=== PATIENT | male | born 1985 | race African-American/Black ===

== ENCOUNTER 2018-04-23 12:53 | Inpatient (IN) | payer MEDICAID ==
[~2018-04-23] VITALS: Ht 175.3 cm; Wt 96.7 kg
[~2018-04-23 12:53] MED LIST: BENZ1TAB10 PO; DIVA-78 PO; QUET300T2 PO; RISPC25 IM
[2018-04-23 15:54] LABS: AMPHET/METH SCREEN,URINE POSITIVE (NEGATIVE); BARBITURATE SCREEN, URINE NEGATIVE (NEGATIVE); BENZODIAZEPINES SCREEN,URINE NEGATIVE (NEGATIVE); CANNABINOID SCREEN,URINE NEGATIVE (NEGATIVE); COCAINE SCREEN,URINE NEGATIVE (NEGATIVE); METHADONE SCREEN, URINE NEGATIVE (NEGATIVE); OPIATE SCREEN,URINE NEGATIVE (NEGATIVE)
[2018-04-23 16:00] LABS: PHENCYCLIDINE SCREEN,URINE NEGATIVE (NEGATIVE)
[2018-04-23 16:03] LABS: HEMATOCRIT 36.3 % (41-53); HEMOGLOBIN 13.2 g/dL (13.5-17.5); MEAN CORPUSCULAR HEMOGLOBIN 36.9 pg (26.0-34.0); MEAN CORPUSCULAR HGB CONC 36.3 G/dL (31.0-37.0); MEAN CORPUSCULAR VOLUME 102 fL (80-100); PLATELET COUNT (AUTO) 257 K/uL (150-450); RED BLOOD CELL COUNT(AUTO) 3.58 MIL/uL (4.50-5.90); RED CELL DISTRIBUTION WIDTH 14.8 % (11.5-14.5)
[2018-04-23 16:18] LABS: ANION GAP 6 mmol/L (8-16); CALCIUM, TOTAL 9.3 mg/dL (8.8-10.5); CARBON DIOXIDE 28 mmol/L (22-29); CHLORIDE 103 mmol/L (98-107); CREATININE 1.21 mg/dL (0.60-1.30); GLOMERULAR FILTR. RATE CALC > 60 mL/min (>60); GLUCOSE,RANDOM 99 mg/dL (70-110); POTASSIUM 4.6 mmol/L (3.5-5.1); SODIUM SERUM 137 mmol/L (136-145); UREA NITROGEN, BLOOD 24 mg/dL (7-18)
[2018-04-23 16:24] LABS: ALANINE AMINOTRANSFERASE 36 U/L (12-78); ALBUMIN 3.8 g/dL (3.4-5.0); ALKALINE PHOSPHATASE 53 U/L (46-116); ASPARTATE AMINOTRANSFERASE 31 U/L (15-37); BILIRUBIN,TOTAL 0.9 mg/dL (0.1-1.0); TOTAL PROTEIN, SERUM 7.5 g/dL (6.4-8.2); VALPROIC ACID 45 mcg/mL (50-100)
[2018-04-23 17:52] LABS: BAND NEUTROPHILS % (MANUAL) 1 % (0-5); EOSINOPHILS % (MANUAL) 2 % (1-6); LYMPHOCYTES % (MANUAL) 21 % (22-44); MONOCYTES % (MANUAL) 5 % (2-9); SEGMENTED NEUTROPHILS % 71 % (40-70)
[2018-04-23] MEDS ORDERED: HALOPERIDOL 5 MG TABLET PO PRN (20:30)
[2018-04-23 21:02] LABS: APPEARANCE,URINE CLEAR (CLEAR); GLUCOSE, URINE (UA) NEGATIVE (NEGATIVE); KETONES,URINE NEGATIVE (NEGATIVE); LEUKOCYTE ESTERASE ,URINE NEGATIVE (NEGATIVE); NITRATE,URINE NEGATIVE (NEGATIVE); OCCULT BLOOD,URINE NEGATIVE (NEGATIVE); PROTEIN,URINE NEGATIVE (NEGATIVE)
[2018-04-23 21:06] LABS: BILIRUBIN,URINE PRELIM. POSITIVE (NEGATIVE)
[2018-04-23 21:18] LABS: BACTERIA,URINE None Seen /HPF (None Seen); RBC,URINE 0-2 /HPF (0-2); SQUAMOUS EPITHELIAL CELL,UR Rare /LPF (None Seen)
[2018-04-24 01:10] VITALS: BP 106/72
[2018-04-24 03:40] LABS: CHOL/HDL RATIO 2.8 (4.2-7.3); CHOLESTEROL 137 mg/dL (131-200); HDL CHOLESTEROL 49 mg/dL (40-60); LDL CHOL (CALC.) 71 mg/dL (0-130); TRIGLYCERIDES 84 mg/dL (15-150)
[2018-04-24 08:24] VITALS: BP 108/75
[2018-04-24] MEDS ORDERED: MAGNESIUM HYDROXIDE SUSPENSION 30 ML UDCUP PO PRN (09:30)
[2018-04-24] MEDS ORDERED: ONDANSETRON HCL 4 MG TABLET PO PRN (09:30)
[2018-04-24] MEDS ORDERED: IBUPROFEN 600 MG TABLET PO PRN (09:30)
[2018-04-24] MEDS ORDERED: OMEPRAZOLE 20 MG CAPSULE PO PRN (09:30)
[2018-04-24] MEDS ORDERED: ACETAMINOPHEN 325 MG TABLET PO PRN (09:30)
[2018-04-24] MEDS ORDERED: PETROLATUM,WHITE 71 GM JELLY TP PRN (09:30)
[2018-04-24] MEDS ORDERED: DOCUSATE SODIUM 100 MG CAPSULE PO PRN (09:30)
[2018-04-24] MEDS ORDERED: BACITRACIN 28.4 GM OINTMENT TP PRN (09:30)
[2018-04-24] MEDS ORDERED: LOPERAMIDE HCL 2 MG CAPSULE PO PRN (09:30)
[2018-04-24] MEDS ORDERED: CloNIDine HCL 0.1 MG TABLET PO PRN (09:30)
[2018-04-24] MEDS ORDERED: ALBUTEROL SULFATE HFA 90 MCG/PUFF 8 GM INHALER IH PRN (09:30)
[2018-04-24] MEDS ORDERED: BENZOCAINE/MENTHOL LOZENGE MM PRN (09:30)
[2018-04-24] MEDS ORDERED: MAG HYDROX/AL HYDROX/SIMETH ES 30 ML SUSPENSION UDCUP PO PRN (09:30)
[2018-04-24 10:35] VITALS: BP 120/59
[2018-04-24] MEDS: PARoxetine HCL 20 MG TABLET PO SCH (13:15)
[2018-04-24 16:00] VITALS: BP 116/64
[2018-04-24] MEDS: BENZTROPINE MESYLATE 1 MG TABLET PO SCH (17:06)
[2018-04-24] MEDS: LORazepam 2 MG TABLET PO PRN (17:06)
[2018-04-24] MEDS: DIVALPROEX SODIUM 500 MG ER TABLET PO SCH (17:07)
[2018-04-24] MEDS: ZOLPIDEM TARTRATE 10 MG TABLET PO PRN (21:01)
[2018-04-24] MEDS: QUEtiapine FUMARATE 300 MG TABLET PO SCH (21:01)
[2018-04-25 03:02] VITALS: BP 122/88
[2018-04-25 08:02] VITALS: BP 100/65
[2018-04-25] MEDS: BENZTROPINE MESYLATE 1 MG TABLET PO SCH ×2 (08:09→16:25)
[2018-04-25] MEDS: DIVALPROEX SODIUM 500 MG ER TABLET PO SCH ×2 (08:09→16:25)
[2018-04-25] MEDS: PARoxetine HCL 20 MG TABLET PO SCH (08:09)
[2018-04-25 08:32] LABS: % IRON SATURATION 47.5 % (30-44)
[2018-04-25 16:07] VITALS: BP 114/68
[2018-04-25] MEDS: LORazepam 2 MG TABLET PO PRN (16:25)
[2018-04-25] MEDS: QUEtiapine FUMARATE 300 MG TABLET PO SCH (20:13)
[2018-04-25] MEDS: ZOLPIDEM TARTRATE 10 MG TABLET PO PRN (20:13)
[2018-04-26 06:25] VITALS: BP 126/72
[2018-04-26] MEDS: DIVALPROEX SODIUM 500 MG ER TABLET PO SCH ×2 (08:01→16:46)
[2018-04-26] MEDS: PARoxetine HCL 20 MG TABLET PO SCH (08:01)
[2018-04-26] MEDS: BENZTROPINE MESYLATE 1 MG TABLET PO SCH ×2 (08:01→16:46)
[2018-04-26 08:02] VITALS: BP 113/85
[2018-04-26] MEDS ORDERED: PALIPERIDONE PALMITATE 234 MG/1.5 ML SYRINGE IM ONE (09:00)
[2018-04-26 16:01] VITALS: BP 112/65
[2018-04-26] MEDS: LORazepam 2 MG TABLET PO PRN (16:46)
[2018-04-26] MEDS: QUEtiapine FUMARATE 300 MG TABLET PO SCH (20:14)
[2018-04-26] MEDS: ZOLPIDEM TARTRATE 10 MG TABLET PO PRN (20:15)
[2018-04-27 00:16] VITALS: BP 131/77
[2018-04-27] MEDS: DIVALPROEX SODIUM 500 MG ER TABLET PO SCH (08:02)
[2018-04-27] MEDS: BENZTROPINE MESYLATE 1 MG TABLET PO SCH (08:02)
[2018-04-27] MEDS: PARoxetine HCL 20 MG TABLET PO SCH (08:02)
[2018-04-27 08:08] VITALS: BP 113/66
[2018-04-27] MEDS ORDERED: PARO20TA24 PO (11:56)
[2018-04-27] MEDS ORDERED: DIVA500T52 PO (11:56)
[2018-04-27] MEDS ORDERED: DIVA-78 PO (12:14)
== END 2018-04-27 13:05 | disposition home or self-care (01) | DRG 750 ==
LOC: EMS 12:54 → UNDOADMIN 04-24 00:08 → B3A 04-24 00:08 → AHU 04-24 00:08 → B3A 04-24 01:00 → AHU 04-24 10:06 → B3A 04-24 10:06
PROVIDERS: ADMIT Psychiatry & Neurology Psychiatry; ATTEND Psychiatry & Neurology Psychiatry
DX: F20.0 Paranoid schizophrenia (principal); Z91.14 Patient's other noncompliance with medication regimen; R45.851 Suicidal ideations; D64.9 Anemia, unspecified; F15.90 Other stimulant use, unspecified, uncomplicated; F17.200 Nicotine dependence, unspecified, uncomplicated; K59.00 Constipation, unspecified; Z71.6 Tobacco abuse counseling
CPT/HCPCS: 83540; 83550; G0480

== ENCOUNTER 2018-05-01 02:34 | Inpatient (IN) | payer MEDICAID ==
[~2018-05-01] VITALS: Ht 180.3 cm; Wt 95.7 kg
[~2018-05-01 02:34] MED LIST changes: +PARO20TA24 PO; -RISPC25 IM
[2018-05-01 03:09] LABS: BASOPHILS % (AUTO) 0.7 % (0.0-2.0); EOSINOPHILS % (AUTO) 1.9 % (1.0-6.0); HEMATOCRIT 37.5 % (41-53); HEMOGLOBIN 13.5 g/dL (13.5-17.5); LYMPHOCYTES # (AUTO) 2.8 K/uL (1.0-4.8); LYMPHOCYTES % (AUTO) 29.7 % (22.0-44.0); MEAN CORPUSCULAR HEMOGLOBIN 36.7 pg (26.0-34.0); MEAN CORPUSCULAR VOLUME 102 fL (80-100); MONOCYTES # (AUTO) 1.1 K/uL (0.1-1.0); MONOCYTES % (AUTO) 11.5 % (2.0-9.0); NEUTROPHILS # (AUTO) 5.3 K/uL (1.8-7.7); NEUTROPHILS % (AUTO) 56.2 % (40.0-70.0); PLATELET COUNT (AUTO) 268 K/uL (150-450); RED BLOOD CELL COUNT(AUTO) 3.69 MIL/uL (4.50-5.90); RED CELL DISTRIBUTION WIDTH 14.7 % (11.5-14.5)
[2018-05-01 03:20] LABS: ANION GAP 10 mmol/L (8-16); CALCIUM, TOTAL 9.1 mg/dL (8.8-10.5); CARBON DIOXIDE 29 mmol/L (22-29); CHLORIDE 103 mmol/L (98-107); GLOMERULAR FILTR. RATE CALC > 60 mL/min (>60); GLUCOSE,RANDOM 76 mg/dL (70-110); POTASSIUM 4.1 mmol/L (3.5-5.1); SODIUM SERUM 142 mmol/L (136-145); UREA NITROGEN, BLOOD 12 mg/dL (7-18)
[2018-05-01 03:26] LABS: ALANINE AMINOTRANSFERASE 35 U/L (12-78); ALBUMIN 3.7 g/dL (3.4-5.0); ALKALINE PHOSPHATASE 58 U/L (46-116); ASPARTATE AMINOTRANSFERASE 26 U/L (15-37); TOTAL PROTEIN, SERUM 7.3 g/dL (6.4-8.2)
[2018-05-01 03:35] LABS: AMPHET/METH SCREEN,URINE POSITIVE (NEGATIVE); BARBITURATE SCREEN, URINE NEGATIVE (NEGATIVE); BENZODIAZEPINES SCREEN,URINE NEGATIVE (NEGATIVE); CANNABINOID SCREEN,URINE NEGATIVE (NEGATIVE); COCAINE SCREEN,URINE NEGATIVE (NEGATIVE); METHADONE SCREEN, URINE NEGATIVE (NEGATIVE); OPIATE SCREEN,URINE NEGATIVE (NEGATIVE)
[2018-05-01 03:37] LABS: PHENCYCLIDINE SCREEN,URINE NEGATIVE (NEGATIVE)
[2018-05-01] MEDS ORDERED: ZOLPIDEM TARTRATE 10 MG TABLET PO PRN (06:30)
[2018-05-01 10:00] VITALS: BP 99/72
[2018-05-01 10:20] LABS: BILIRUBIN,URINE NEGATIVE (NEGATIVE); GLUCOSE, URINE (UA) NEGATIVE (NEGATIVE); KETONES,URINE NEGATIVE (NEGATIVE); LEUKOCYTE ESTERASE ,URINE NEGATIVE (NEGATIVE); NITRATE,URINE NEGATIVE (NEGATIVE); OCCULT BLOOD,URINE NEGATIVE (NEGATIVE); PROTEIN,URINE NEGATIVE (NEGATIVE)
[2018-05-01 10:32] LABS: APPEARANCE,URINE HAZY (CLEAR)
[2018-05-01 16:05] VITALS: BP 123/71
[2018-05-01] MEDS: LORazepam 2 MG TABLET PO PRN (16:30)
[2018-05-01] MEDS: HALOPERIDOL 5 MG TABLET PO PRN (16:30)
[2018-05-01] MEDS: QUEtiapine FUMARATE 300 MG TABLET PO SCH (22:36)
[2018-05-02 06:00] VITALS: BP 108/72
[2018-05-02] MEDS: DIVALPROEX SODIUM 500 MG DR TABLET PO SCH ×2 (08:23→16:21)
[2018-05-02] MEDS: BENZTROPINE MESYLATE 1 MG TABLET PO SCH ×2 (08:23→16:21)
[2018-05-02] MEDS: LORazepam 2 MG TABLET PO PRN (08:23)
[2018-05-02 08:32] VITALS: BP 106/63
[2018-05-02 16:00] VITALS: BP 109/72
[2018-05-02] MEDS: QUEtiapine FUMARATE 300 MG TABLET PO SCH (20:18)
[2018-05-03 06:09] VITALS: BP 114/74
[2018-05-03 08:16] VITALS: BP 102/61
[2018-05-03] MEDS: BENZTROPINE MESYLATE 1 MG TABLET PO SCH ×2 (09:44→16:29)
[2018-05-03] MEDS: DIVALPROEX SODIUM 500 MG DR TABLET PO SCH ×2 (09:45→16:29)
[2018-05-03 16:08] VITALS: BP 104/73
[2018-05-03] MEDS: QUEtiapine FUMARATE 300 MG TABLET PO SCH (20:01)
[2018-05-04 05:28] VITALS: BP 108/68
[2018-05-04 08:24] VITALS: BP 108/76
[2018-05-04] MEDS: BENZTROPINE MESYLATE 1 MG TABLET PO SCH ×2 (08:35→17:06)
[2018-05-04] MEDS: DIVALPROEX SODIUM 500 MG DR TABLET PO SCH ×2 (08:35→17:06)
[2018-05-04 16:00] VITALS: BP 110/70
[2018-05-04] MEDS: QUEtiapine FUMARATE 300 MG TABLET PO SCH (20:39)
[2018-05-05 05:58] VITALS: BP 112/72
[2018-05-05] MEDS: DIVALPROEX SODIUM 500 MG DR TABLET PO SCH ×2 (08:03→16:24)
[2018-05-05] MEDS: BENZTROPINE MESYLATE 1 MG TABLET PO SCH ×2 (08:03→16:24)
[2018-05-05 08:27] VITALS: BP 106/75
[2018-05-05 16:01] VITALS: BP 106/67
[2018-05-05] MEDS: QUEtiapine FUMARATE 300 MG TABLET PO SCH (20:20)
[2018-05-05] MEDS ORDERED: LOPERAMIDE HCL 2 MG CAPSULE PO PRN (20:45)
[2018-05-05] MEDS ORDERED: ONDANSETRON HCL 4 MG TABLET PO PRN (20:45)
[2018-05-05] MEDS ORDERED: BACITRACIN 28.4 GM OINTMENT TP PRN (20:45)
[2018-05-05] MEDS ORDERED: MAGNESIUM HYDROXIDE SUSPENSION 30 ML UDCUP PO PRN (20:45)
[2018-05-05] MEDS ORDERED: ACETAMINOPHEN 325 MG TABLET PO PRN (20:45)
[2018-05-05] MEDS ORDERED: ALBUTEROL SULFATE HFA 90 MCG/PUFF 8 GM INHALER IH PRN (20:45)
[2018-05-05] MEDS ORDERED: BENZOCAINE/MENTHOL LOZENGE MM PRN (20:45)
[2018-05-05] MEDS ORDERED: CloNIDine HCL 0.1 MG TABLET PO PRN (20:45)
[2018-05-05] MEDS ORDERED: MAG HYDROX/AL HYDROX/SIMETH ES 30 ML SUSPENSION UDCUP PO PRN (20:45)
[2018-05-05] MEDS ORDERED: IBUPROFEN 600 MG TABLET PO PRN (20:45)
[2018-05-05] MEDS ORDERED: PETROLATUM,WHITE 71 GM JELLY TP PRN (20:45)
[2018-05-06 02:14] VITALS: BP 109/62
[2018-05-06] MEDS: DOCUSATE SODIUM 100 MG CAPSULE PO SCH (08:01)
[2018-05-06] MEDS: OMEPRAZOLE 20 MG CAPSULE PO SCH (08:01)
[2018-05-06] MEDS: DIVALPROEX SODIUM 500 MG DR TABLET PO SCH ×2 (08:01→17:03)
[2018-05-06] MEDS: BENZTROPINE MESYLATE 1 MG TABLET PO SCH ×2 (08:01→17:03)
[2018-05-06 08:29] VITALS: BP 100/67
[2018-05-06 16:00] VITALS: BP 108/65
[2018-05-06] MEDS: QUEtiapine FUMARATE 300 MG TABLET PO SCH (21:07)
[2018-05-07 06:16] VITALS: BP 109/71
[2018-05-07 08:02] VITALS: BP 102/60
[2018-05-07] MEDS: DIVALPROEX SODIUM 500 MG DR TABLET PO SCH ×2 (08:07→16:53)
[2018-05-07] MEDS: BENZTROPINE MESYLATE 1 MG TABLET PO SCH ×2 (08:07→16:53)
[2018-05-07] MEDS: DOCUSATE SODIUM 100 MG CAPSULE PO SCH (08:08)
[2018-05-07] MEDS: OMEPRAZOLE 20 MG CAPSULE PO SCH (08:13)
[2018-05-07 16:06] VITALS: BP 107/82
[2018-05-07] MEDS: HALOPERIDOL 5 MG TABLET PO PRN (19:16)
[2018-05-07] MEDS: LORazepam 2 MG TABLET PO PRN (19:16)
[2018-05-07] MEDS: QUEtiapine FUMARATE 300 MG TABLET PO SCH (20:30)
[2018-05-08 00:39] VITALS: BP 112/76
[2018-05-08] MEDS: BENZTROPINE MESYLATE 1 MG TABLET PO SCH ×2 (08:01→16:17)
[2018-05-08] MEDS: DOCUSATE SODIUM 100 MG CAPSULE PO SCH (08:01)
[2018-05-08] MEDS: DIVALPROEX SODIUM 500 MG DR TABLET PO SCH ×2 (08:01→16:16)
[2018-05-08] MEDS: OMEPRAZOLE 20 MG CAPSULE PO SCH (08:01)
[2018-05-08] MEDS: LORazepam 2 MG TABLET PO PRN ×2 (08:02→12:52)
[2018-05-08 08:33] VITALS: BP 106/64
[2018-05-08 17:39] VITALS: BP 120/81
[2018-05-08] MEDS: QUEtiapine FUMARATE 300 MG TABLET PO SCH (20:51)
[2018-05-09 00:13] VITALS: BP 114/74
[2018-05-09] MEDS ORDERED: MULTIVITAMINS WITH IRON TABLET PO SCH (07:30)
[2018-05-09] MEDS: BENZTROPINE MESYLATE 1 MG TABLET PO SCH (08:09)
[2018-05-09] MEDS: DIVALPROEX SODIUM 500 MG DR TABLET PO SCH (08:09)
[2018-05-09] MEDS: DOCUSATE SODIUM 100 MG CAPSULE PO SCH (08:09)
[2018-05-09] MEDS: OMEPRAZOLE 20 MG CAPSULE PO SCH (08:09)
[2018-05-09 08:42] VITALS: BP 135/81
== END 2018-05-09 13:15 | disposition home or self-care (01) | DRG 750 ==
LOC: EMS 02:34 → B3A 08:03
PROVIDERS: ADMIT Psychiatry & Neurology Psychiatry; ATTEND Psychiatry & Neurology Psychiatry
DX: F20.0 Paranoid schizophrenia (principal); D64.9 Anemia, unspecified; F15.90 Other stimulant use, unspecified, uncomplicated; F17.200 Nicotine dependence, unspecified, uncomplicated; K59.00 Constipation, unspecified; Z71.6 Tobacco abuse counseling
CPT/HCPCS: 87081; 90686; G0480

== ENCOUNTER 2018-09-21 18:22 | Inpatient (IN) | payer MEDICAID ==
[~2018-09-21] VITALS: Ht 180.3 cm; Wt 95.7 kg
[~2018-09-21 18:22] MED LIST changes: -PARO20TA24 PO
[2018-09-21 21:26] LABS: BASOPHILS % (AUTO) 0.6 % (0.0-2.0); EOSINOPHILS % (AUTO) 2.4 % (1.0-6.0); HEMATOCRIT 34.4 % (41-53); HEMOGLOBIN 11.9 g/dL (13.5-17.5); LYMPHOCYTES # (AUTO) 2.2 K/uL (1.0-4.8); LYMPHOCYTES % (AUTO) 20.2 % (22.0-44.0); MEAN CORPUSCULAR HEMOGLOBIN 38.2 pg (26.0-34.0); MEAN CORPUSCULAR HGB CONC 34.5 G/dL (31.0-37.0); MEAN CORPUSCULAR VOLUME 111 fL (80-100); MONOCYTES # (AUTO) 1.2 K/uL (0.1-1.0); MONOCYTES % (AUTO) 11.1 % (2.0-9.0); NEUTROPHILS # (AUTO) 7.2 K/uL (1.8-7.7); NEUTROPHILS % (AUTO) 65.7 % (40.0-70.0); PLATELET COUNT (AUTO) 326 K/uL (150-450); RED BLOOD CELL COUNT(AUTO) 3.11 MIL/uL (4.50-5.90); RED CELL DISTRIBUTION WIDTH 16.1 % (11.5-14.5)
[2018-09-21 21:36] LABS: ANION GAP 11 mmol/L (8-16); CALCIUM, TOTAL 9.4 mg/dL (8.8-10.5); CARBON DIOXIDE 27 mmol/L (22-29); CHLORIDE 101 mmol/L (98-107); CREATININE 1.53 mg/dL (0.60-1.30); GLOMERULAR FILTR. RATE CALC > 60 mL/min (>60); GLUCOSE,RANDOM 105 mg/dL (70-110); POTASSIUM 4.4 mmol/L (3.5-5.1); SODIUM SERUM 139 mmol/L (136-145); UREA NITROGEN, BLOOD 24 mg/dL (7-18)
[2018-09-21 21:42] LABS: ALANINE AMINOTRANSFERASE 36 U/L (12-78); ALKALINE PHOSPHATASE 63 U/L (46-116); ASPARTATE AMINOTRANSFERASE 45 U/L (15-37); BILIRUBIN,TOTAL 2.3 mg/dL (0.1-1.0); TOTAL PROTEIN, SERUM 8.3 g/dL (6.4-8.2)
[2018-09-21] MEDS ORDERED: DIVALPROEX SODIUM 250 MG DR TABLET PO ONE (21:45)
[2018-09-21] MEDS ORDERED: QUEtiapine FUMARATE 100 MG TABLET PO ONE (21:45)
[2018-09-21 22:55] LABS: AMPHET/METH SCREEN,URINE POSITIVE (NEGATIVE); BARBITURATE SCREEN, URINE NEGATIVE (NEGATIVE); BENZODIAZEPINES SCREEN,URINE NEGATIVE (NEGATIVE); CANNABINOID SCREEN,URINE NEGATIVE (NEGATIVE); COCAINE SCREEN,URINE NEGATIVE (NEGATIVE); METHADONE SCREEN, URINE NEGATIVE (NEGATIVE); OPIATE SCREEN,URINE NEGATIVE (NEGATIVE)
[2018-09-21 22:56] LABS: PHENCYCLIDINE SCREEN,URINE NEGATIVE (NEGATIVE)
[2018-09-22 03:12] VITALS: BP 117/75
[2018-09-22 08:58] VITALS: BP 138/73
[2018-09-22] MEDS ORDERED: PETROLATUM,WHITE 28 GM JELLY TP PRN (12:00)
[2018-09-22] MEDS ORDERED: BENZOCAINE/MENTHOL LOZENGE MM PRN (12:00)
[2018-09-22] MEDS ORDERED: MAGNESIUM HYDROXIDE SUSPENSION 30 ML UDCUP PO PRN (12:00)
[2018-09-22] MEDS ORDERED: ONDANSETRON HCL 4 MG TABLET PO PRN (12:00)
[2018-09-22] MEDS ORDERED: DOCUSATE SODIUM 100 MG CAPSULE PO PRN (12:00)
[2018-09-22] MEDS ORDERED: IBUPROFEN 600 MG TABLET PO PRN (12:00)
[2018-09-22] MEDS ORDERED: OMEPRAZOLE 20 MG CAPSULE PO PRN (12:00)
[2018-09-22] MEDS ORDERED: ALBUTEROL SULFATE HFA 90 MCG/PUFF 8 GM INHALER IH PRN (12:00)
[2018-09-22] MEDS ORDERED: ACETAMINOPHEN 325 MG TABLET PO PRN (12:00)
[2018-09-22] MEDS ORDERED: BACITRACIN 28.4 GM OINTMENT TP PRN (12:00)
[2018-09-22] MEDS ORDERED: MAG HYDROX/AL HYDROX/SIMETH ES 30 ML SUSPENSION UDCUP PO PRN (12:00)
[2018-09-22] MEDS ORDERED: CloNIDine HCL 0.1 MG TABLET PO PRN (12:00)
[2018-09-22] MEDS ORDERED: LOPERAMIDE HCL 2 MG CAPSULE PO PRN (12:00)
[2018-09-22 16:00] VITALS: BP 109/65
[2018-09-22] MEDS: HALOPERIDOL 5 MG TABLET PO PRN (16:34)
[2018-09-22] MEDS: DIVALPROEX SODIUM 500 MG DR TABLET PO SCH (16:34)
[2018-09-22] MEDS: BENZTROPINE MESYLATE 1 MG TABLET PO SCH (16:34)
[2018-09-22] MEDS: LORazepam 2 MG TABLET PO PRN (16:34)
[2018-09-22] MEDS: QUEtiapine FUMARATE 300 MG TABLET PO SCH (20:20)
[2018-09-23 05:22] VITALS: BP 117/72
[2018-09-23 07:37] LABS: CHOL/HDL RATIO 3.6 (4.2-7.3)
[2018-09-23 08:29] VITALS: BP 105/64
[2018-09-23] MEDS: LORazepam 2 MG TABLET PO PRN ×2 (08:50→16:16)
[2018-09-23] MEDS: BENZTROPINE MESYLATE 1 MG TABLET PO SCH ×2 (08:51→16:16)
[2018-09-23] MEDS: DIVALPROEX SODIUM 500 MG DR TABLET PO SCH ×2 (08:51→16:16)
[2018-09-23 16:00] VITALS: BP 123/66
[2018-09-23] MEDS: HALOPERIDOL 5 MG TABLET PO PRN (16:16)
[2018-09-23] MEDS: QUEtiapine FUMARATE 300 MG TABLET PO SCH (20:35)
[2018-09-24 02:22] VITALS: BP 118/62
[2018-09-24] MEDS: BENZTROPINE MESYLATE 1 MG TABLET PO SCH ×2 (08:09→16:59)
[2018-09-24] MEDS: DIVALPROEX SODIUM 500 MG DR TABLET PO SCH ×2 (08:09→16:59)
[2018-09-24 08:36] VITALS: BP 100/62
[2018-09-24 16:06] VITALS: BP 126/65
[2018-09-24] MEDS: LORazepam 2 MG TABLET PO PRN (20:12)
[2018-09-24] MEDS: QUEtiapine FUMARATE 300 MG TABLET PO SCH (20:12)
[2018-09-25 06:23] VITALS: BP 121/71
[2018-09-25 08:31] VITALS: BP 114/66
[2018-09-25] MEDS: DIVALPROEX SODIUM 500 MG DR TABLET PO SCH ×2 (08:34→17:04)
[2018-09-25] MEDS: BENZTROPINE MESYLATE 1 MG TABLET PO SCH ×2 (08:35→17:04)
[2018-09-25 16:00] VITALS: BP 112/66
[2018-09-25] MEDS: LORazepam 2 MG TABLET PO PRN (17:04)
[2018-09-25] MEDS: HALOPERIDOL 5 MG TABLET PO PRN (17:04)
[2018-09-25] MEDS: ZOLPIDEM TARTRATE 10 MG TABLET PO PRN (20:40)
[2018-09-25] MEDS: QUEtiapine FUMARATE 300 MG TABLET PO SCH (20:40)
[2018-09-26 06:55] VITALS: BP 124/69
[2018-09-26] MEDS: DIVALPROEX SODIUM 500 MG DR TABLET PO SCH ×2 (08:58→16:54)
[2018-09-26] MEDS: BENZTROPINE MESYLATE 1 MG TABLET PO SCH ×2 (08:58→16:54)
[2018-09-26 09:20] VITALS: BP 109/82
[2018-09-26] MEDS: LORazepam 2 MG TABLET PO PRN (16:54)
[2018-09-26] MEDS: HALOPERIDOL 5 MG TABLET PO PRN (16:54)
[2018-09-26 18:57] VITALS: BP 121/68
[2018-09-26] MEDS: QUEtiapine FUMARATE 300 MG TABLET PO SCH (20:27)
[2018-09-26] MEDS: ZOLPIDEM TARTRATE 10 MG TABLET PO PRN (20:27)
[2018-09-27 07:05] VITALS: BP 123/67
[2018-09-27] MEDS: BENZTROPINE MESYLATE 1 MG TABLET PO SCH ×2 (08:56→16:59)
[2018-09-27] MEDS: DIVALPROEX SODIUM 500 MG DR TABLET PO SCH ×2 (08:56→16:59)
[2018-09-27 09:31] VITALS: BP 113/70
[2018-09-27 16:00] VITALS: BP 130/70
[2018-09-27] MEDS: LORazepam 2 MG TABLET PO PRN (16:59)
[2018-09-27] MEDS: HALOPERIDOL 5 MG TABLET PO PRN (16:59)
[2018-09-27] MEDS: ZOLPIDEM TARTRATE 10 MG TABLET PO PRN (20:39)
[2018-09-27] MEDS: QUEtiapine FUMARATE 300 MG TABLET PO SCH (20:39)
[2018-09-28 06:52] VITALS: BP 125/75
[2018-09-28] MEDS: DIVALPROEX SODIUM 500 MG DR TABLET PO SCH ×2 (08:10→16:46)
[2018-09-28] MEDS: BENZTROPINE MESYLATE 1 MG TABLET PO SCH ×2 (08:10→16:46)
[2018-09-28] MEDS: MULTIVITAMINS WITH IRON TABLET PO SCH (08:10)
[2018-09-28 09:11] VITALS: BP 106/70
[2018-09-28 16:11] VITALS: BP 125/77
[2018-09-28] MEDS: HALOPERIDOL 5 MG TABLET PO PRN (16:46)
[2018-09-28] MEDS: LORazepam 2 MG TABLET PO PRN (16:46)
[2018-09-28] MEDS: ZOLPIDEM TARTRATE 10 MG TABLET PO PRN (20:16)
[2018-09-28] MEDS: QUEtiapine FUMARATE 300 MG TABLET PO SCH (20:16)
[2018-09-29 03:03] VITALS: BP 118/78
[2018-09-29] MEDS: BENZTROPINE MESYLATE 1 MG TABLET PO SCH (08:17)
[2018-09-29] MEDS: MULTIVITAMINS WITH IRON TABLET PO SCH (08:17)
[2018-09-29] MEDS: DIVALPROEX SODIUM 500 MG DR TABLET PO SCH (08:18)
[2018-09-29 08:36] VITALS: BP 109/69
[2018-10-10] MEDS ORDERED: PALIPERIDONE PALMITATE 234 MG/1.5 ML SYRINGE IM ONE (09:00)
== END 2018-09-29 13:36 | disposition home or self-care (01) | DRG 750 ==
LOC: EMS 18:24 → B3A 09-22 01:21
PROVIDERS: ADMIT Psychiatry & Neurology Psychiatry; ATTEND Psychiatry & Neurology Psychiatry
DX: F20.0 Paranoid schizophrenia (principal); R45.851 Suicidal ideations; K73.9 Chronic hepatitis, unspecified; D64.9 Anemia, unspecified; F15.90 Other stimulant use, unspecified, uncomplicated; F17.200 Nicotine dependence, unspecified, uncomplicated; K59.00 Constipation, unspecified; Z71.51 Drug abuse counseling and surveillance of drug abuser; Z71.6 Tobacco abuse counseling; Z56.0 Unemployment, unspecified; Z72.89 Other problems related to lifestyle
CPT/HCPCS: 83036; G0480